=== PATIENT | male | born 1970 | race Caucasian/White ===

== ENCOUNTER 2019-08-06 13:32 | Emergency (ER) | payer BC ==
[~2019-08-06] VITALS: Ht 177.8 cm; Wt 104.3 kg
[2019-08-06] MEDS ORDERED: SODIUM CHLORIDE 0.9% 1000ML 1,000 ML IV STA (15:34)
[2019-08-06] MEDS ORDERED: ONDANSETRON HCL INJ 2MG/ML 2ML 2 MG/ML VIAL IV ONE (15:34)
[2019-08-06] MEDS ORDERED: ASPIRIN 81 MG CHEW TAB PO ONE (15:34)
[2019-08-06] MEDS ORDERED: MECLIZINE HCL 12.5 MG TAB PO ONE (15:45)
[2019-08-06 15:55] LABS: BILIRUBIN,URINE NEGATIVE (NEGATIVE); CLARITY,URINE CLEAR (CLEAR); COLOR,URINE YELLOW (YELLOW); KETONES,URINE NEGATIVE (NEGATIVE); LEUKOCYTE ESTERASE ,URINE NEGATIVE (NEGATIVE); NITRITE,URINE NEGATIVE (NEGATIVE); PROTEIN,URINE DIPSTICK NEGATIVE (NEGATIVE); URINE UROBILINOGEN 0.2 mg/dL (0.2 - 1)
--- NOTE | 2019-08-06 16:49 | Diagnostic Imaging Report ---
EXAMINATION: Head CT HISTORY: Dizziness, near syncope, evaluate for acute stroke. COMPARISON: None. TECHNIQUE: Multidetector axial images were obtained without contrast from the foramen magnum to the vertex . The images were reconstructed using brain and bone algorithms. Thin section brain images were reformatted into coronal and sagittal planes. Image quality: Motion/streaking artifact limits the evaluation of the skull base and posterior cranial fossa. Dose modulation, iterative reconstruction, and/or weight based adjustment of the mA/kV was utilized to reduce the radiation dose to as low as reasonably achievable. FINDINGS: Parenchyma: 1. No abnormal densities. 2. No mass or hemorrhage. No CT evidence of acute territorial vascular insult. Extra-axial spaces:No abnormal density. No extra-axial fluid collections Brain volume: Normal for age. Ventricles: No hydrocephalus or displacement. Arteries: No density suggestive of thrombus. Dural sinuses: No abnormal density. Extra-axial spaces: No abnormal density. Foramen magnum: No mass, Chiari malformation, or basilar invagination. Sella: No obvious mass. Paranasal/mastoid sinuses: Imaged portions unremarkable. Skull/Scalp: No lytic or blastic lesions. No fractures. IMPRESSION: No intracranial abnormalities, particularly no hemorrhage or cortical infarcts Signed by: Dr. Nancy José M.D. on 08/06/2019 4:46 PM
--- NOTE | 2019-08-06 16:57 | Diagnostic Imaging Report ---
EXAMINATION: CHEST SINGLE (PORTABLE) INDICATION: Dizziness, near syncope COMPARISON: None FINDINGS: LINES/TUBES:None LUNGS:The lungs are well-inflated. No focal consolidation or pulmonary edema. PLEURA:No pleural effusion or pneumothorax. MEDIASTINUM:The cardiomediastinal silhouette appears normal in size and shape. BONES/SOFT TISSUES:No acute osseous injury. Postoperative changes of prior hardware fixation of the right proximal humerus and glenoid. ABDOMEN:No free air under the diaphragm. IMPRESSION: No focal pneumonia or pulmonary edema. Signed by: Davy Schmitt MD on 08/06/2019 4:54 PM
--- NOTE | 2019-08-06 17:35 | NUR ---
Call in lobby no answer
--- NOTE | 2019-08-06 18:12 | Diagnostic Imaging Report ---
EXAMINATION: MRI of the brain without contrast. HISTORY: Dizziness, Dizziness, near syncope, evaluate for acute stroke. COMPARISON: Head CT 08/06/2019 TECHNIQUE: Sagittal T2; axial DWI, T2, FLAIR, T1-IR, T2 gradient echo; coronal FLAIR. FINDINGS: Parenchyma: 1. No abnormal signal intensity 2. No mass, hemorrhage, acute or chronic infarcts. Skull: Unremarkable. Vessels: Expected flow voids present in the major arteries and dural sinuses. Extra-axial spaces: No abnormal signal intensity or mass effect. Brain volume: Within normal limits for age. Ventricles: No hydrocephalus or displacement. Foramen magnum: Unremarkable. Sella: Unremarkable. Paranasal / mastoid sinuses: No significant inflammatory disease. IMPRESSION: No intracranial abnormalities, particularly no acute infarcts. Signed by: Dr. Nancy José M.D. on 08/06/2019 6:09 PM
[2019-08-06 23:21] VITALS: BP 120/75
== END 2019-08-06 20:52 | disposition home or self-care (01) ==
LOC: ER 13:32
DX: R42 Dizziness and giddiness (principal); R11.0 Nausea
CPT/HCPCS: 70450; 70551; 71045; 81001; 93880; 99283